=== PATIENT | male | born 1995 | race African-American/Black ===

== ENCOUNTER 2020-10-22 15:45 | Emergency (ER) | payer OTHER ==
[~2020-10-22] VITALS: Ht 162.6 cm; Wt 127.3 kg
[2020-10-22 16:38] VITALS: BP 141/74
== END 2020-10-22 16:53 | disposition home or self-care (01) ==
LOC: EMS 15:54
DX: K08.89 Other specified disorders of teeth and supporting structures (principal); I10 Essential (primary) hypertension
CPT/HCPCS: 99283